=== PATIENT | female | born 1960 ===

== ENCOUNTER 2019-06-30 12:21 | Emergency (ER) | payer OTHER ==
[~2019-06-30] VITALS: Ht 167.6 cm; Wt 70.8 kg
[2019-06-30] MEDS ORDERED: NEURONTIN600 MG (12:51)
[2019-06-30] MEDS ORDERED: NEURONTIN300 MG (12:51)
[2019-06-30] MEDS ORDERED: LEXAPRO5 MG (12:52)
[2019-06-30] MEDS ORDERED: [UNRECOGNIZED DRUG - OTHER] (12:52)
== END 2019-06-30 15:21 | disposition home or self-care (01) ==
LOC: ER 12:21
DX: G24.3 Spasmodic torticollis (principal)

== ENCOUNTER 2021-09-02 12:13 | Emergency (ER) | payer OTHER ==
[~2021-09-02] VITALS: Ht 165.1 cm; Wt 64.0 kg
[~2021-09-02 12:13] MED LIST: LEXAPRO5 MG; NEURONTIN300 MG; NEURONTIN600 MG; [UNRECOGNIZED DRUG - OTHER]
[2021-09-02] MEDS ORDERED: IBU800 MG PO (12:47)
[2021-09-02] MEDS ORDERED: DIAZEPAM10 MG PO (12:47)
[2021-09-02] MEDS ORDERED: CARISOPRODOL350 MG PO (12:47)
[2021-09-02] MEDS ORDERED: NORFLEX100MG PO (15:49)
[2021-09-02] MEDS ORDERED: KETO10TA2 PO (15:49)
== END 2021-09-02 16:09 | disposition home or self-care (01) ==
LOC: ER 12:13
DX: M54.2 Cervicalgia (principal)